=== PATIENT | female | born 1995 | race Caucasian/White ===

== ENCOUNTER 2023-06-07 14:12 | Emergency (ER) | payer OTHER, SELFPAY ==
[2023-06-07 14:36] VITALS: BP 127/95; PULSE 93; RESP 16; TEMP 37.4; O2SAT 99
--- NOTE | 2023-06-07 14:53 | ED.DENTAL ---
HPI - Dental/Oral General Chief complaint: Dental/Oral Stated complaint: WISDOM TOOTH SWELLING Time Seen by Provider: 06/07/23 14:53 Source: patient, RN notes reviewed and old records reviewed Mode of arrival: ambulatory Limitations: no limitations History of Present Illness HPI Narrative: 27 year old female who presents to express care with complaints of swelling and pain to left posterior gum where her wisdom tooth is trying to come through with some facial swelling noted since Saturday.Patient has scheduled appointment with her dentist on Saturday and was told to come to urgent care to obtain antibiotic prior to appointment. Patient has applied ice to her face and has been applying oral gel to her gum and has also taken Ibuprofen for her pain. MD Complaint: tooth pain Location: Tooth # (17) Onset (ago): day(s) (2 swelling and pain ) Severity scale (1-10): 5 Treatment prior to arrival: topical analgesic and oral analgesic Related Data Allergies Allergy/AdvReac Type Severity Reaction Status Date / Time No Known Allergies Allergy Unverified 01/09/16 21:47 Review of Systems Review of Systems: CONSTITUTIONAL: Denies fever, chills, or sweats. ENT: Denies rhinorrhea, congestion, sore throat, or otalgia. Reports dental pain to left posterior gum where #17 tooth is trying to come through with swelling also to left side of her face since Saturday with increased pain since last night. CARDIOVASCULAR: Denies chest pain, palpitations, or edema. RESPIRATORY: Denies cough or dyspnea. SKIN: Denies rash or itching. MUSCULOSKELETAL: Denies myalgia. NEUROLOGIC: Denies headache All systems reviewed & are unremarkable except as noted in HPI and below [facility] Past Medical History Medical History (Updated 06/08/23 @ 10:30 by Poly Ortiz NP) No significant past medical history Surgical History Surgical History (Updated 06/08/23 @ 10:31 by Poly Ortiz NP) No significant past surgical history Social History Social History (Updated 06/08/23 @ 10:28 by Poly Ortiz NP) Smoking status: Current every day smoker Tobacco type: cigarettes Alcohol intake: current Alcohol use details: social Substance use type: does not use Living arrangements: with family Gender identity (if verbalized by the patient): Female Comments At time of signature, agree with nursing past medical, surgical, social and family history. There is no relevant family history pertinent to the presenting complaint Exam Narrative: GENERAL: Well-appearing, well-nourished, and in no acute distress. HEAD: Normocephalic, atraumatic. EYES: PERRLA and EOMI. ENT: Nares clear, no rhinorrhea or epistaxis. Mucous membranes moist. Red swollen gum to area where #17 tooth is tying to come through with some left sided facial swelling noted.No trismus or Tim angina noted able to control oral secretions on own without difficulty NECK: Supple. no Lymphadenopathy CHEST: Clear to auscultation. No respiratory distress.SA2 99% on room air HEART: Regular rate and rhythm. No murmur heard. Normal peripheral pulses. SKIN: Warm, dry, no rash. NEURO: No focal deficits. Alert and oriented x3. Course Course Emergency Course: Patient is aware of diagnosis, understands and agrees to treatment plan. Anticipatory guidance given. Patient agrees to follow-up as directed and is aware of reasons to seek care at the emergency department. Portions of this record may have been created with voice recognition software Level of Care: Express Care Visit Vital Signs Vital signs: Vital Signs Temperature 37.4 C 06/07/23 14:36 Pulse Rate 93 06/07/23 14:36 Respiratory Rate 16 06/07/23 14:36 Blood Pressure 127/95 H 06/07/23 14:36 Pulse Oximetry 99 06/07/23 14:36 Temperature 37.4 C 06/07/23 14:36 Pulse Rate 93 06/07/23 14:36 Respiratory Rate 16 06/07/23 14:36 Blood Pressure 127/95 H 06/07/23 14:36 Pulse Oximetry 99 06/07/23 14:36
== END 2023-06-07 15:08 | disposition home or self-care (01) ==
PROVIDERS: Emergency Provider Registered Nurse
DX: K08.89 Other specified disorders of teeth and supporting structures (principal); R22.0 Localized swelling, mass and lump, head; F17.210 Nicotine dependence, cigarettes, uncomplicated
CPT/HCPCS: 99203; G0463